=== PATIENT | male | born 1990 | race Caucasian/White ===

== ENCOUNTER 2018-09-25 12:39 | Emergency (ER) | payer OTHER ==
[2018-09-25 12:49] VITALS: BP 143/94; PULSE 88; RESP 20; TEMP 98.3
--- NOTE | 2018-09-25 14:19 | ED ---
General Adult HPI - General Chief complaint: Extremity Injury, Lower Stated complaint: Foot Injury Time Seen by Provider: 09/25/18 13:07 Source: patient Mode of arrival: ambulatory Limitations: no limitations - History of Present Illness Initial comments: Patient is a 28-year-old male resenting to the emergency department with right foot pain. Patient states yesterday he jumped over a fence about 4 feet high and landed awkwardly on his right foot. Initially the pain was tolerable but it progressively got worse. Patient reports minimal discomfort while at rest but pain is greatly exacerbated with axial loading on the right foot. Patient states he has difficulty walking which is interrupting his daily activities. Patient states that he noticed swelling since this morning. She denies taking any medication to relieve the pain. Patient denies numbness, tingling or muscle weakness. He reports limited range of motion due to pain. - Related Data Allergies Allergy/AdvReac Type Severity Reaction Status Date / Time No Known Allergies Allergy Verified 09/25/18 12:48 Review of Systems ROS Statement: Those systems with pertinent positive or pertinent negative responses have been documented in the HPI. ROS Other: All systems not noted in ROS Statement are negative. Past Medical History Past Medical History: No Reported History History of Any Multi-Drug Resistant Organisms: None Reported Past Surgical History: No Surgical Hx Reported Past Psychological History: No Psychological Hx Reported Smoking Status: Current every day smoker Past Alcohol Use History: None Reported Past Drug Use History: Marijuana General Exam Limitations: no limitations General appearance: alert, in no apparent distress Head exam: Present: atraumatic, normocephalic Eye exam: Present: normal appearance, PERRL. Absent: scleral icterus, co njunctival injection Pupils: Present: normal accommodation Neck exam: Present: normal inspection Respiratory exam: Present: normal lung sounds bilaterally. Absent: wheezes, rales, rhonchi, stridor Cardiovascular Exam: Present: regular rate, normal rhythm, normal heart sounds Expanded Peripheral pulses: 2+: Posterior Tibialis (R), Dorsalis Pedis (R) Right Upper Leg exam: Present: normal inspection, full ROM. Absent: tenderness Knee exam: Present: normal inspection, full ROM. Absent: tenderness, swelling Lower Leg exam: Present: normal inspection, full ROM. Absent: tenderness Foot/Toe exam: Present: tenderness (Tenderness over medial aspect of the right m idfoot), swelling (Medial and lateral). Absent: full ROM (Pain with dorsiflexion and inversion), laceration, ecchymosis, crepitus Neurovascular tendon exam: Absent: pulse deficit, sensory deficit 1 - Pain specific to this area Course Vital Signs 09/25/18 12:45 Temperature 98.3 F Pulse Rate 88 Respiratory 20 Rate Blood Pressure 143/94 O2 Sat by Pulse 96 Oximetry Medical Decision Making - Medical Decision Making 20-year-old male presenting to the emergency department with foot pain after traumatic injury. X-ray of the foot was obtained and is unremarkable. Foot and ankle were wrapped using a strep. Patient was advised to keep the leg elevated, continue compression and use a cold pack 4 times a day 10-20 minutes. Patient was advised to obtain a clear crutches to help with mobility. Patient was advised to refrain from any weightbearing on the right foot. Patient was given contact information for an automotive glass specialist. Patient to return to the emergency room if symptoms worsen. Case was discussed with physician. Disposition Clinical Impression: Right foot sprain Disposition: HOME SELF-CARE Condition: Stable Instructions (If sedation given, give patient instructions): Foot Sprain (ED) Additional Instructions: Continue using Wes wrap for compression and apply ice pack 4 times a day 10-20 minutes each. Use crutches and refrain from putting weight on right foot. Make an appointment with automotive glass specialist. Return to the emergency department if symptoms worsen. Is patient prescribed a controlled substance at d/c from ED?: No Referrals: None,Stated [Primary Care Provider] - 1-2 days Time of Disposition: 15:11
--- NOTE | 2018-09-25 14:42 | XR ---
EXAMINATION TYPE: XR foot complete RT DATE OF EXAM: 09/25/2018 COMPARISON: None HISTORY: Trauma to foot TECHNIQUE: Three-view right foot FINDINGS: No acute fractures are evident. Soft tissues are normal. Joint spaces are preserved. Follow-up exam can be performed 7-10 days from acute trauma for continued pain. IMPRESSION: 1. Normal three-view right foot.
== END 2018-09-25 15:42 | disposition home or self-care (01) ==
LOC: EC 12:39
DX: S93.601A Unspecified sprain of right foot, initial encounter (principal); F17.200 Nicotine dependence, unspecified, uncomplicated; W17.89XA Other fall from one level to another, initial encounter; Y93.39 Activity, other involving climbing, rappelling and jumping off; Y92.89 Other specified places as the place of occurrence of the external cause
CPT/HCPCS: 99283

== ENCOUNTER 2023-06-02 15:44 | Emergency (ER) | payer OTHER ==
--- NOTE | 2023-06-02 16:46 | ED ---
General Adult HPI - General Chief complaint: Upper Respiratory Infection Stated complaint: Fever,Cough Time Seen by Provider: 06/02/23 16:16 Source: patient, RN notes reviewed, old records reviewed Mode of arrival: ambulatory - History of Present Illness Initial comments: Patient is a 33-year-old male who presents with Department complaining of upper respiratory illness for the last week. Having a cough for the last 6 days associated with upper respiratory congestion, considered having mild fevers today. Denies any chest pain. Denies any sore throat. Denies abdominal pain, vomiting, diarrhea. Has no other significant past medical history acute complaints at this time. Presents for further evaluation. Does have positive sick contacts of influenza at work. - Related Data Allergies Allergy/AdvReac Type Severity Reaction Status Date / Time No Known Allergies Allergy Verified 09/25/18 12:48 Review of Systems ROS Statement: Those systems with pertinent positive or pertinent negative responses have been documented in the HPI. Review of Systems: CONST: Endorses fever EYES: Denies blurry vision ENT: Endorses nasal congestion C/V: Denies Chest pain RESP: Denies shortness of breath GI: Denies abdominal pain : Denies dysuria SKIN: Denies rash. MSK: Denies joint pain. NEURO: Denies headache ROS Other: All systems not noted in ROS Statement are negative. Genitourinary: Reports: testicular mass Past Medical History Past Medical History: No Reported History History of Any Multi-Drug Resistant Organisms: None Reported Past Surgical History: No Surgical Hx Reported Past Psychological History: No Psychological Hx Reported Past Alcohol Use History: None Reported Past Drug Use History: Marijuana General Exam - General Exam Comments Initial Comments: General: Appears in no acute distress. HEAD: Normal with no signs of head trauma. EYES: EOMI ENT: Hearing grossly intact, normal oropharynx. RESPIRATORY: Clear breath sounds bilaterally. No wheezes, rales, or rhonchi. No hypoxia. No increased work of breathing. C/V: Regular rate and rhythm. S1 and S2 auscultated, peripheral pulses 2+ and intact throughout ABD: Abd is soft, nontender, nondistended EXT: no obvious deformity SKIN: No rashes or lesions observed on exposed skin. NEURO: Alert and oriented x 4. Course Vital Signs 06/02/23 06/02/23 16:08 18:08 Temperature 99.0 F 98.6 F Pulse Rate 104 H 99 Respiratory 18 16 Rate Blood Pressure 121/83 121/86 O2 Sat by Pulse 95 99 Oximetry Medical Decision Making - Medical Decision Making Was pt. sent in by a medical professional or institution (ESSIE Mo, [employer]CT PROF[employer]OR OF [employer], urgent care, hospital, or care home...) When possible be specific @ -No Did you speak to anyone other than the patient for history (EMS, parent, family, police, friend...)? What history was obtained from this source @ -No Did you review nursing and triage notes (agree or disagree)? Why? @ -I reviewed and agree with nursing and triage notes Were old charts reviewed (outside hosp., previous admission, EMS record, old EKG, old radiological studies, urgent care reports/EKG's, care home records)? Report findings @ -No old charts were reviewed Differential Diagnosis (chest pain, altered mental status, abdominal pain women, abdominal pain men, vaginal bleeding, weakness, fever, dyspnea, syncope, headache, dizziness, GI bleed, back pain, seizure, CVA, palpatations, mental health, musculoskeletal)? @ -URI, viral illness, pneumonia, Covid, influenza. This list is not all- inclusive EKG interpreted by me (3pts min.). @ -None done X-rays interpreted by me (1pt min.). @ -Chest x-ray reveals no obvious acute cardio pulmonary process. CT interpreted by me (1pt min.). @ -None done U/S interpreted by me (1pt. min.). @ -None done What testing was considered but not performed or refused? (CT, X-rays, U/S, labs)? Why? @ -None What meds were considered but not given or refused? Why? @ -None Did you discuss the management of the patient with other professionals (professionals i.e. ESSIE Mo, [employer] PROF[employer], lab, RT, psych nurse, social security assessor, fitness director, teacher, special weapons unit officer, case briefer)? Give summary @ -No Was smoking cessation discussed for >3mins.? @ -No Was critical care preformed (if so, how long)? @ -No Were there social determinants of health that impacted care today? How? (Homelessness, low income, unemployed, alcoholism, drug addiction, transportation, low edu. Level, literacy, decrease access to med. care, nursing home, rehab)? @ -No Was there de-escalation of care discussed even if they declined (Discuss DNR or withdrawal of care, Hospice)? DNR status @ -No What co-morbidities impacted this encounter? (DM, HTN, Smoking, COPD, CAD, Cancer, CVA, ARF, Chemo, Hep., AIDS, mental health diagnosis, sleep apnea, morbid obesity)? @ -None Was patient admitted / discharged? Hospital course, mention meds given and route, prescriptions, significant lab abnormalities, going to OR and other pertinent info. @ -Based on patient's presentation and physical exam, patient presents with upper respiratory illness symptoms. Has been ongoing for at least 6 days. We will obtain viral swabs and chest x-ray. He was in agreement this plan. Vital signs are within acceptable limits. Had Tylenol earlier for fever. Chest x-ray negative for any obvious findings. Patient's viral swabs positive for influenza type A. I discussed results with the patient. He will receive a dose of oral steroids at this time. He will be discharged home at this time. Patient was in agreement this plan. I instructed the patient to follow up with their PCP in the next 1-3 days. I explained that the patient should return to the emergency department if they experience any worsening symptoms. Strict return precautions were discussed with the patient. The patient expressed understanding of these instructions. I answered all questions that the patient had. The patient was discharged home in good condition with their prescriptions and follow up information. Undiagnosed new problem with uncertain prognosis? @ -No Drug Therapy requiring intensive monitoring for toxicity (Heparin, Nitro, Insulin, Cardizem)? @ -No Were any procedures done? @ -No Diagnosis/symptom? @ -Influenza A infection Acute, or Chronic, or Acute on Chronic? @ -Acute Uncomplicated (without systemic symptoms) or Complicated (systemic symptoms)? @ -Complicated Side effects of treatment? @ -none Exacerbation, Progression, or Severe Exacerbation] @ -no Poses a threat to life or bodily function? @ -no - Lab Data Lab Results 06/02/23 Range/Units 16:38 Influenza Type A (PCR) Detected A (Not Detectd) Influenza Type B (PCR) Not Detected (Not Detectd) RSV (PCR) Not Detected (Not Detectd) SARS-CoV-2 (PCR) Not Detected (Not Detectd) Disposition Clinical Impression: Influenza A Disposition: HOME SELF-CARE Condition: Good Instructions (If sedation given, give patient instructions): Influenza (ED) Is patient prescribed a controlled substance at d/c from ED?: No Referrals: None,Stated [Primary Care Provider] - 1-2 days Time of Disposition: 17:51
--- NOTE | 2023-06-02 17:03 | XR ---
EXAMINATION TYPE: XR chest 2V DATE OF EXAM: 06/02/2023 4:51 PM CLINICAL INDICATION:Male, 33 years old with history of cough; [facility] COMPARISON: None TECHNIQUE: XR chest 2V Frontal and lateral views of the chest. FINDINGS: Lungs/Pleura: There is no evidence of pleural effusion, focal consolidation, or pneumothorax. Pulmonary vascularity: Unremarkable. Heart/mediastinum: Cardiomediastinal silhouette is unremarkable. Musculoskeletal: No acute osseous pathology. IMPRESSION: No acute cardiopulmonary disease/process.
[2023-06-02] MEDS ORDERED: dexAMETHasone 2 MG TAB PO STA (17:40)
[2023-06-02 18:28] VITALS: BP 121/86; PULSE 99; RESP 16; TEMP 98.6
== END 2023-06-02 18:10 | disposition home or self-care (01) ==
LOC: EC 15:44
DX: J10.1 Influenza due to other identified influenza virus with other respiratory manifestations (principal); F12.90 Cannabis use, unspecified, uncomplicated; Z20.822 Contact with and (suspected) exposure to COVID-19
CPT/HCPCS: 87636; 71046; 99284; J8540